=== PATIENT | female | born 1965 | race Hispanic/Latino ===

== ENCOUNTER 2019-03-24 17:30 | Outpatient (CLI) | payer OTHER | END 2019-03-24 17:31 | disposition home or self-care (01) | LOC: SLEEPLAB 17:30 | PROVIDERS: ATTEND Physician Assistant | DX: G47.9 Sleep disorder, unspecified (principal); R06.83 Snoring; R53.83 Other fatigue; G47.33 Obstructive sleep apnea (adult) (pediatric) | CPT/HCPCS: 95806 ==

== ENCOUNTER 2020-03-09 08:04 | Outpatient (CLI) | payer OTHER ==
--- NOTE | 2020-03-09 09:23 | MMO ---
Bilateral MAMMO Bilat Screen [facility]. CLINICAL HISTORY: Patient is 55 years old and is seen for screening. The patient has no family history of breast cancer. The patient has no personal history of cancer. VIEWS: The views performed were: bilateral craniocaudal with tomosynthesis and bilateral mediolateral oblique with tomosynthesis. FILMS COMPARED: The present examination has been compared to a prior imaging study performed at [facility] on 01/14/2019. This study has been interpreted with the assistance of computer-aided detection. MAMMOGRAM FINDINGS: The breasts are heterogeneously dense, which could obscure a lesion on mammography. There are stable benign appearing calcifications seen in both breasts. There are no suspicious masses, suspicious calcifications, or new areas of architectural distortion. IMPRESSION: THERE IS NO MAMMOGRAPHIC EVIDENCE OF MALIGNANCY. A ROUTINE FOLLOW-UP MAMMOGRAM IN 1 YEAR IS RECOMMENDED. THE RESULTS OF THIS EXAM WERE SENT TO THE PATIENT. ACR BI-RADS Category 2 - Benign finding MAMMOGRAPHY NOTE: 1. A negative mammogram report should not delay a biopsy if a dominant of clinically suspicious mass is present. 2. Approximately 10% to 15% of breast cancers are not detected by mammography. 3. Adenosis and dense breasts may obscure an underlying neoplasm. Reported by: DUKE MCKINNEY MD Electonically Signed: [id number]
== END 2020-03-09 08:05 | disposition home or self-care (01) ==
LOC: BICMAMMO 08:04
PROVIDERS: ATTEND Physician Assistant
DX: Z12.31 Encounter for screening mammogram for malignant neoplasm of breast (principal)
CPT/HCPCS: 77063; 77067

== ENCOUNTER 2020-08-16 10:55 | Outpatient (CLI) | payer OTHER ==
[~2020-08-16 10:55] MED LIST: Iopamidol 370 76% 100 ML VIAL ONE
== END 2020-08-16 10:56 | disposition home or self-care (01) ==
LOC: BICCT 10:55
PROVIDERS: ATTEND Internal Medicine Hematology & Oncology
DX: C15.5 Malignant neoplasm of lower third of esophagus (principal); R91.8 Other nonspecific abnormal finding of lung field; K22.8 Other specified diseases of esophagus; R16.0 Hepatomegaly, not elsewhere classified; N28.1 Cyst of kidney, acquired; Z90.710 Acquired absence of both cervix and uterus
CPT/HCPCS: 71260; 74177; Q9967

== ENCOUNTER 2020-08-24 08:04 | Outpatient (CLI) | payer OTHER | END 2020-08-24 08:05 | disposition home or self-care (01) | LOC: PET 08:04 | PROVIDERS: ATTEND Internal Medicine Hematology & Oncology | DX: C15.5 Malignant neoplasm of lower third of esophagus (principal); R91.1 Solitary pulmonary nodule; C78.00 Secondary malignant neoplasm of unspecified lung; C78.7 Secondary malignant neoplasm of liver and intrahepatic bile duct; C77.9 Secondary and unspecified malignant neoplasm of lymph node, unspecified | CPT/HCPCS: 78815; A9552 ==

== ENCOUNTER 2020-08-27 08:17 | Outpatient (CLI) | payer OTHER ==
[2020-08-27] MEDS ORDERED: Magnevist 469MG/ML 20 ML VIAL ONE (09:41)
== END 2020-08-27 08:18 | disposition home or self-care (01) ==
LOC: MRI 08:17
PROVIDERS: ATTEND Internal Medicine Hematology & Oncology
DX: C15.5 Malignant neoplasm of lower third of esophagus (principal); G93.89 Other specified disorders of brain; R58 Hemorrhage, not elsewhere classified
CPT/HCPCS: 70553; A9579

== ENCOUNTER 2020-09-10 12:27 | Outpatient (CLI) | payer OTHER | END 2020-09-10 12:28 | disposition home or self-care (01) | LOC: ULT 12:27 | PROVIDERS: ATTEND Internal Medicine Hematology & Oncology | DX: Z51.11 Encounter for antineoplastic chemotherapy (principal); C15.5 Malignant neoplasm of lower third of esophagus; Z79.899 Other long term (current) drug therapy | CPT/HCPCS: 93306 ==

== ENCOUNTER 2020-11-20 09:45 | Inpatient (IN) | payer OTHER ==
[2020-11-20] MEDS ORDERED: Iopamidol-370 76% 500 ML 1 ML ONE (11:49)
[2020-11-20 12:00] LABS: Hemoglobin 14.9 g/dL (12.0-16.0); Mean Corpuscular HGB CONC 32.6 g/dL (32.0-36.0); Mean Corpuscular Hemoglobin 28.5 pg (27.0-31.0); Mean Corpuscular Volume 87.2 fL (78.0-98.0); Mean Platelet Volume 11.1 fL (7.4-10.4); Platelet Count 293 thou/uL (130-400); Red Blood Cell (RBC) Count 5.23 mill/uL (4.20-5.40)
[2020-11-20 12:11] LABS: ALT (SGPT) 29 U/L (8-55); AST (SGOT) 45 U/L (5-34); Albumin 3.7 g/dL (3.5-5.0); Alkaline Phosphatase 342 U/L (40-110); Anion Gap 22 mmol/L (10-20); BUN (Urea Nitrogen) 18 mg/dL (9.8-20.1); Bilirubin, Total 0.8 mg/dL (0.2-1.2); Calc. Creatinine Clearance 0 mL/min (70-130); Calcium 9.7 mg/dL (7.8-10.44); Carbon Dioxide 20 mmol/L (22-29); Chloride 96 mmol/L (98-107); Globulin 2.3 g/dL (2.4-3.5); Glucose 95 mg/dL (70-105); Potassium 4.1 mmol/L (3.5-5.1); Sodium 134 mmol/L (136-145)
[2020-11-20 12:22] LABS: Anisocytosis SLIGHT = 6-15 cells (100X) (0-5/hpf); Band 15 % (5-11); Elliptocytes SLIGHT = 2-5 cells (100X) (0-1/hpf); Lymphocytes 6 % (21-51); MDiff Complete? YES; Monocytes 14 % (0-10); Myelocyte 3 % (0-0); Neutrophil 62 % (42-75); Reflex for Review?? YES; Schistocytes SLIGHT = 2-5 cells (100X) (0-1/hpf)
[2020-11-20] MEDS ORDERED: Piperacillin/Tazobactam 3.375 GM VIAL ONE (13:32)
[2020-11-20] MEDS ORDERED: Ondansetron PF 4 MG/2 ML Vial ONE (13:32)
[2020-11-20 15:56] LABS: Bilirubin Negative (Negative); Blood, Urine Trace (Negative); Clarity Clear (Clear); Glucose, Urine (Dipstick) Normal (Negative); Ketone, Urine Trace mg/dL (Negative); Leukocyte 250 Leu/uL (Negative); Nitrite 1+ (Negative); Protein, Urine (Dipstick) 20 mg/dL (Neg-Trace); Specific Gravity, Urine 1.041 (1.002-1.036); Squamous Epithelial 0-3 HPF (0-3); Urobilinogen Normal mg/dL (Less than 2); pH, Urine 5.5 (5.0-9.0)
[2020-11-20 16:03] LABS: Bacteria/HPF 2+ HPF (None Seen); WBC/HPF 21-50 HPF (0-3)
[2020-11-20] MEDS ORDERED: Bisacodyl 5 MG TAB PO PRN (17:19)
[2020-11-20 17:21] VITALS: BMI 31.7
[2020-11-20] MEDS ORDERED: Piperacillin/Tazobactam 3.375 GM in Sodium Chloride 0.9% 100 ML IVPB SCH ×2 (17:30→18:00)
[2020-11-20 17:37] LABS: Lactic Acid 3.9 mmol/L (0.5-2.2)
[2020-11-20] MEDS: Sodium Chloride 0.9% 1,000 ML IV SCH (18:03)
[2020-11-20] MEDS: Acetaminophen 325 MG TAB PO PRN (18:21)
[2020-11-20] MEDS: Heparin 5,000 UNITS/ML VIAL SC SCH (21:08)
[2020-11-20] MEDS: Piperacillin/Tazobactam 3.375 GM in Sodium Chloride 0.9% 100 ML IVPB SCH (21:08)
[2020-11-21] MEDS: Piperacillin/Tazobactam 3.375 GM in Sodium Chloride 0.9% 100 ML IVPB SCH ×3 (04:38→21:38)
[2020-11-21] MEDS: Ondansetron PF 4 MG/2 ML Vial IVP PRN ×3 (04:38→21:38)
[2020-11-21 05:18] LABS: Anion Gap 13 mmol/L (10-20); BUN (Urea Nitrogen) 13 mg/dL (9.8-20.1); Calc. Creatinine Clearance 72 mL/min (70-130); Carbon Dioxide 23 mmol/L (22-29); Chloride 103 mmol/L (98-107); Glucose 67 mg/dL (70-105); Potassium 3.1 mmol/L (3.5-5.1); Sodium 136 mmol/L (136-145)
[2020-11-21 05:20] LABS: Band 17 % (5-11); Eosinophils 1 % (0-10); Hemoglobin 12.1 g/dL (12.0-16.0); Lymphocytes 10 % (21-51); MDiff Complete? YES; Mean Corpuscular HGB CONC 32.7 g/dL (32.0-36.0); Mean Corpuscular Hemoglobin 28.6 pg (27.0-31.0); Mean Corpuscular Volume 87.4 fL (78.0-98.0); Mean Platelet Volume 11.4 fL (7.4-10.4); Monocytes 20 % (0-10); Neutrophil 52 % (42-75); Platelet Count 206 thou/uL (130-400); Platelet Morphology Comment Appears Adequate; RBC Distribution Width 23.9 % (11.5-14.5); RBC Morphology Normal; Red Blood Cell (RBC) Count 4.23 mill/uL (4.20-5.40); White Blood Cell (WBC) Count 33.4 thou/uL (4.8-10.8)
[2020-11-21 08:11] LABS: SARS-CoV-2 PCR by NAA Not Detected (NotDetected)
[2020-11-21] MEDS: Sodium Chloride 0.9% 1,000 ML IV SCH ×3 (08:25→21:39)
[2020-11-21] MEDS: Heparin 5,000 UNITS/ML VIAL SC SCH ×3 (08:25→21:38)
[2020-11-22] MEDS: Sodium Chloride 0.9% 1,000 ML IV SCH ×2 (05:30→20:14)
[2020-11-22] MEDS: Piperacillin/Tazobactam 3.375 GM in Sodium Chloride 0.9% 100 ML IVPB SCH ×3 (05:31→22:26)
[2020-11-22] MEDS: Heparin 5,000 UNITS/ML VIAL SC SCH ×3 (09:00→20:29)
[2020-11-22] MEDS: Megestrol Acetate 800 MG/20 ML UDCUP PO SCH (09:17)
[2020-11-22] MEDS: Acetaminophen 325 MG TAB PO PRN (19:41)
[2020-11-23] MEDS: Sodium Chloride 0.9% 1,000 ML IV SCH (01:48)
[2020-11-23 04:35] LABS: ALT (SGPT) 14 U/L (8-55); AST (SGOT) 30 U/L (5-34); Albumin 2.3 g/dL (3.5-5.0); Alkaline Phosphatase 181 U/L (40-110); Anion Gap 12 mmol/L (10-20); BUN (Urea Nitrogen) 6 mg/dL (9.8-20.1); Bilirubin, Total 0.5 mg/dL (0.2-1.2); Calc. Creatinine Clearance 107 mL/min (70-130); Calcium 7.1 mg/dL (7.8-10.44); Carbon Dioxide 17 mmol/L (22-29); Chloride 112 mmol/L (98-107); Globulin 1.5 g/dL (2.4-3.5); Hemoglobin 10.5 g/dL (12.0-16.0); Platelet Count 161 thou/uL (130-400); Protein, Total 3.8 g/dL (6.0-8.3); RBC Distribution Width 23.8 % (11.5-14.5); Red Blood Cell (RBC) Count 3.63 mill/uL (4.20-5.40); Sodium 139 mmol/L (136-145); White Blood Cell (WBC) Count 41.3 thou/uL (4.8-10.8)
[2020-11-23 04:42] LABS: Glucose 56 mg/dL (70-105); Potassium 2.3 mmol/L (3.5-5.1)
[2020-11-23] MEDS ORDERED: Dextrose 50% Abboject 50 ML SYRINGE SLOW IVP PRN (04:51)
[2020-11-23] MEDS ORDERED: Dextrose 5% in Water 1,000 ML IV PRN (04:51)
[2020-11-23] MEDS ORDERED: Electrolyte Replacement Protocol 1 EACH FS SCH (05:00)
[2020-11-23] MEDS: Piperacillin/Tazobactam 3.375 GM in Sodium Chloride 0.9% 100 ML IVPB SCH ×3 (05:11→21:31)
[2020-11-23] MEDS: Potassium Chloride 20 MEQ in Premix Bag 1 BAG IVPB SCH ×2 (05:12→07:07)
[2020-11-23] MEDS: Acetaminophen 325 MG TAB PO PRN ×2 (05:17→22:19)
[2020-11-23 06:04] LABS: Anisocytosis MODERATE=16-30 cells (100X) (0-5/hpf); Band 23 % (5-11); Elliptocytes SLIGHT = 2-5 cells (100X) (0-1/hpf); Lymphocytes 12 % (21-51); MDiff Complete? YES; Metamyelocyte 1 % (0-0); Monocytes 15 % (0-10); Myelocyte 2 % (0-0); Neutrophil 47 % (42-75)
[2020-11-23] MEDS: Potassium Chloride 40 MEQ in Sodium Chloride 0.9% 250 ML 250 ML IVPB SCH ×2 (07:08→17:05)
[2020-11-23] MEDS ORDERED: Dextrose 5 %-0.45 % NaCl 1,000 ML IV SCH (07:30)
[2020-11-23] MEDS: D5 1/2 NS w/20 mEq KCL 1,000 ML IV SCH ×2 (08:29→17:31)
[2020-11-23] MEDS: Megestrol Acetate 800 MG/20 ML UDCUP PO SCH (08:37)
[2020-11-23] MEDS: Heparin 5,000 UNITS/ML VIAL SC SCH ×3 (08:37→21:34)
[2020-11-23] MEDS ORDERED: Magnevist 469MG/ML 20 ML VIAL ONE (13:42)
[2020-11-23] MEDS: Mirtazapine 30 MG TAB PO SCH (21:33)
[2020-11-24] MEDS: D5 1/2 NS w/20 mEq KCL 1,000 ML IV SCH ×2 (05:33→12:44)
[2020-11-24] MEDS: Piperacillin/Tazobactam 3.375 GM in Sodium Chloride 0.9% 100 ML IVPB SCH ×3 (05:33→20:05)
[2020-11-24 06:27] LABS: Band 14 % (5-11); Elliptocytes SLIGHT = 2-5 cells (100X) (0-1/hpf); Lymphocytes 7 % (21-51); MDiff Complete? YES; Mean Corpuscular HGB CONC 32.5 g/dL (32.0-36.0); Mean Corpuscular Hemoglobin 28.7 pg (27.0-31.0); Mean Corpuscular Volume 88.3 fL (78.0-98.0); Mean Platelet Volume 6.6 fL (7.4-10.4); Metamyelocyte 1 % (0-0); Monocytes 3 % (0-10); Myelocyte 5 % (0-0); Neutrophil 70 % (42-75); Nucleated RBC 2 % (0); Platelet Count 151 thou/uL (130-400); RBC Distribution Width 24.5 % (11.5-14.5); Red Blood Cell (RBC) Count 3.84 mill/uL (4.20-5.40); White Blood Cell (WBC) Count 48.3 thou/uL (4.8-10.8)
[2020-11-24] MEDS: Acetaminophen 325 MG TAB PO PRN (08:23)
[2020-11-24] MEDS: Heparin 5,000 UNITS/ML VIAL SC SCH ×3 (08:23→20:07)
[2020-11-24 08:27] LABS: ALT (SGPT) 15 U/L (8-55); AST (SGOT) 31 U/L (5-34); Albumin 2.5 g/dL (3.5-5.0); Alkaline Phosphatase 190 U/L (40-110); Anion Gap 12 mmol/L (10-20); BUN (Urea Nitrogen) Less than 4 mg/dL (9.8-20.1); Bilirubin, Total 0.4 mg/dL (0.2-1.2); Calc. Creatinine Clearance 114 mL/min (70-130); Calcium 7.5 mg/dL (7.8-10.44); Carbon Dioxide 17 mmol/L (22-29); Chloride 113 mmol/L (98-107); Globulin 1.7 g/dL (2.4-3.5); Glucose 85 mg/dL (70-105); Potassium 3.4 mmol/L (3.5-5.1); Protein, Total 4.2 g/dL (6.0-8.3); Sodium 139 mmol/L (136-145)
[2020-11-24] MEDS ORDERED: Potassium Chloride 20 MEQ TAB PO SCH (11:30)
[2020-11-24] MEDS: Mirtazapine 30 MG TAB PO SCH (20:06)
[2020-11-25] MEDS: Piperacillin/Tazobactam 3.375 GM in Sodium Chloride 0.9% 100 ML IVPB SCH ×3 (04:32→20:07)
[2020-11-25] MEDS: D5 1/2 NS w/20 mEq KCL 1,000 ML IV SCH ×2 (04:32→22:40)
[2020-11-25 05:06] LABS: Anion Gap 11 mmol/L (10-20); BUN (Urea Nitrogen) Less than 4 mg/dL (9.8-20.1); Calc. Creatinine Clearance 143 mL/min (70-130); Calcium 7.3 mg/dL (7.8-10.44); Carbon Dioxide 17 mmol/L (22-29); Chloride 112 mmol/L (98-107); Glucose 70 mg/dL (70-105); Potassium 3.3 mmol/L (3.5-5.1); Sodium 137 mmol/L (136-145)
[2020-11-25] MEDS ORDERED: Potassium Chloride 20 MEQ TAB PO SCH (05:30)
[2020-11-25 06:15] LABS: Anisocytosis SLIGHT = 6-15 cells (100X) (0-5/hpf); Band 13 % (5-11); Elliptocytes SLIGHT = 2-5 cells (100X) (0-1/hpf); Hemoglobin 10.6 g/dL (12.0-16.0); Lymphocytes 16 % (21-51); MDiff Complete? YES; Mean Corpuscular HGB CONC 31.1 g/dL (32.0-36.0); Mean Corpuscular Hemoglobin 27.4 pg (27.0-31.0); Mean Platelet Volume 6.7 fL (7.4-10.4); Metamyelocyte 2 % (0-0); Monocytes 9 % (0-10); Myelocyte 3 % (0-0); Neutrophil 57 % (42-75); Nucleated RBC 2 % (0); Platelet Count 116 thou/uL (130-400); Platelet Morphology Comment Appears Decreased; RBC Distribution Width 24.9 % (11.5-14.5); Red Blood Cell (RBC) Count 3.88 mill/uL (4.20-5.40); Toxic Granulation SLIGHT; White Blood Cell (WBC) Count 41.5 thou/uL (4.8-10.8)
[2020-11-25 08:08] LABS: Magnesium 1.1 mg/dL (1.6-2.6)
[2020-11-25] MEDS: Heparin 5,000 UNITS/ML VIAL SC SCH ×3 (08:19→20:07)
[2020-11-25] MEDS ORDERED: Magnesium Sulfate 4 GM in Sodium Chloride 0.9% 250 ML 250 ML IVPB SCH (11:45)
[2020-11-25] MEDS: Mirtazapine 30 MG TAB PO SCH (20:07)
[2020-11-26] MEDS: Piperacillin/Tazobactam 3.375 GM in Sodium Chloride 0.9% 100 ML IVPB SCH ×2 (05:41→14:13)
[2020-11-26 06:51] LABS: Anion Gap 10 mmol/L (10-20); BUN (Urea Nitrogen) 4 mg/dL (9.8-20.1); Calc. Creatinine Clearance 145 mL/min (70-130); Calcium 7.2 mg/dL (7.8-10.44); Carbon Dioxide 17 mmol/L (22-29); Chloride 113 mmol/L (98-107); Glucose 73 mg/dL (70-105); Potassium 3.7 mmol/L (3.5-5.1); Sodium 136 mmol/L (136-145)
[2020-11-26] MEDS ORDERED: Magnesium 2 GM/50 ML 2 GM in Premix Bag 1 BAG IVPB SCH (07:30)
[2020-11-26] MEDS: Heparin 5,000 UNITS/ML VIAL SC SCH ×3 (08:46→19:48)
[2020-11-26] MEDS ORDERED: cefTRIAXone\\ROCEPHIN 1 GM in Sodium Chloride 0.9% 100 ML IVPB SCH (13:45)
[2020-11-26] MEDS: D5 1/2 NS w/20 mEq KCL 1,000 ML IV SCH (14:12)
[2020-11-26] MEDS: Mirtazapine 30 MG TAB PO SCH (19:48)
[2020-11-27 08:19] LABS: Hemoglobin 10.9 g/dL (12.0-16.0); Mean Corpuscular HGB CONC 32.2 g/dL (32.0-36.0); Mean Corpuscular Hemoglobin 28.9 pg (27.0-31.0); Mean Corpuscular Volume 89.5 fL (78.0-98.0); Mean Platelet Volume 7.2 fL (7.4-10.4); Platelet Count 116 thou/uL (130-400); RBC Distribution Width 25.4 % (11.5-14.5); Red Blood Cell (RBC) Count 3.79 mill/uL (4.20-5.40); White Blood Cell (WBC) Count 29.2 thou/uL (4.8-10.8)
[2020-11-27 08:24] LABS: Anion Gap 9 mmol/L (10-20); BUN (Urea Nitrogen) Less than 4 mg/dL (9.8-20.1); Calc. Creatinine Clearance 150 mL/min (70-130); Calcium 7.6 mg/dL (7.8-10.44); Carbon Dioxide 22 mmol/L (22-29); Chloride 110 mmol/L (98-107); Glucose 78 mg/dL (70-105); Potassium 4.1 mmol/L (3.5-5.1); Sodium 137 mmol/L (136-145)
[2020-11-27 08:25] LABS: Magnesium 1.8 mg/dL (1.6-2.6)
[2020-11-27] MEDS ORDERED: Magnesium 2 GM/50 ML 1 GM in Premix Bag 1 BAG IVPB SCH (08:45)
[2020-11-27] MEDS ORDERED: Magnesium 2 GM/50 ML 2 GM in Premix Bag 1 BAG IVPB SCH (09:00)
[2020-11-27 09:11] LABS: Band 25 % (5-11); Bite Cells SLIGHT = 2-5 cells (100X) (0-1/hpf); Burr Cells SLIGHT = 2-5 cells (100X) (0-1/hpf); Lymphocytes 12 % (21-51); MDiff Complete? YES; Metamyelocyte 11 % (0-0); Monocytes 10 % (0-10); Myelocyte 9 % (0-0); Neutrophil 32 % (42-75); Nucleated RBC 1 % (0); Platelet Morphology Comment Appears Decreased; Polychromasia SLIGHT = 2-3 cells (100X) (0-2/hpf); Reactive Lymphocytes 1 % (0-10); Toxic Granulation SLIGHT
[2020-11-27] MEDS: Heparin 5,000 UNITS/ML VIAL SC SCH (09:15)
[2020-11-27 10:51] VITALS: BP 116/68; TEMP 97.8
== END 2020-11-27 15:06 | disposition home or self-care (01) | DRG 871 ==
LOC: ERS 09:45 → ONC 15:29
PROVIDERS: ADMIT Internal Medicine; ATTEND Internal Medicine
DX: A41.51 Sepsis due to Escherichia coli [E. coli] (principal); E43 Unspecified severe protein-calorie malnutrition; N39.0 Urinary tract infection, site not specified; N17.9 Acute kidney failure, unspecified; E87.1 Hypo-osmolality and hyponatremia; C79.31 Secondary malignant neoplasm of brain; C78.7 Secondary malignant neoplasm of liver and intrahepatic bile duct; C78.00 Secondary malignant neoplasm of unspecified lung; C15.5 Malignant neoplasm of lower third of esophagus; K21.9 Gastro-esophageal reflux disease without esophagitis; E66.9 Obesity, unspecified; R11.2 Nausea with vomiting, unspecified; E11.22 Type 2 diabetes mellitus with diabetic chronic kidney disease; T45.1X5A Adverse effect of antineoplastic and immunosuppressive drugs, initial encounter; R79.89 Other specified abnormal findings of blood chemistry; R65.20 Severe sepsis without septic shock; Z20.822 Contact with and (suspected) exposure to COVID-19; E86.0 Dehydration; N18.30 Chronic kidney disease, stage 3 unspecified; Z92.21 Personal history of antineoplastic chemotherapy; Z90.711 Acquired absence of uterus with remaining cervical stump; Z98.890 Other specified postprocedural states; Z87.891 Personal history of nicotine dependence; Z90.49 Acquired absence of other specified parts of digestive tract; Z68.31 Body mass index [BMI] 31.0-31.9, adult; D63.0 Anemia in neoplastic disease; D70.1 Agranulocytosis secondary to cancer chemotherapy
CPT/HCPCS: 36415; 36416; 70553; 71045; 74177; 80048; 80053; 81003; 81015; 82248; 83605; 83615; 83735; 84100; 84550; 85025; 85060; 87040; 87077; 87086; 87186; 87324; 87449; 93005; 96365; 96375; A9579; J0696; J1644; J2405; J2543; J3475; J3480; J3490; J7050; J7070; Q9967; U0003; U0005

== ENCOUNTER 2020-12-05 13:13 | Outpatient (CLI) | payer OTHER ==
[~2020-12-05 13:13] MED LIST changes: -Iopamidol 370 76% 100 ML VIAL ONE; +Iopamidol 370 76% 50 ML VIAL FS ONE
== END 2020-12-05 13:14 | disposition home or self-care (01) ==
LOC: CT 13:13
PROVIDERS: ATTEND Internal Medicine Hematology & Oncology
DX: Z51.11 Encounter for antineoplastic chemotherapy (principal); C15.5 Malignant neoplasm of lower third of esophagus; K76.9 Liver disease, unspecified; I51.7 Cardiomegaly; Z79.899 Other long term (current) drug therapy
CPT/HCPCS: 71260; 93306; Q9967